=== PATIENT | male | born 2000 | race Caucasian/White ===

== ENCOUNTER 2024-04-20 20:44 | Emergency (ER) | payer SELFPAY ==
[~2024-04-20] VITALS: Ht 182.9 cm; Wt 160.0 kg
[2024-04-20 20:48] VITALS: BP 148/98; PULSE 93; RESP 18; TEMP 98.1; O2SAT 100
[2024-04-20] MEDS ORDERED: KETOROLAC 30MG/ML VIAL IM ONE (22:45)
[2024-04-21] MEDS ORDERED: LIDO700A15 TP (00:34)
[2024-04-21] MEDS ORDERED: NAPR-1176 MT (00:34)
[2024-04-21] MEDS ORDERED: KETOROLAC 30MG/ML VIAL IM NR (01:30)
== END 2024-04-21 02:51 | disposition home or self-care (01) ==
LOC: ER 20:44
DX: M25.512 Pain in left shoulder (principal); M54.9 Dorsalgia, unspecified; J45.909 Unspecified asthma, uncomplicated
CPT/HCPCS: 99283; 73030; J1885